=== PATIENT | female | born 1985 | race Two or more races ===

== ENCOUNTER 2022-04-28 11:39 | Emergency (ER) | payer MEDICAID ==
[~2022-04-28] VITALS: Ht 162.6 cm; Wt 73.5 kg
--- NOTE | 2022-04-28 11:46 | NUR ---
PT BIBRA FROM [facility] C/O R WRIST/HAND PAIN AND SWELLING S/P ACCIDENTALLY HITTING A POLE 1 WEEK AGO. PT ENDORSES THAT SHE IS 6 WEEKS BUT DENIES ANY RELATED CONCERNS. STABLE VITALS. NAD NOTED AWAITING MD GUPTA.
[2022-04-28] MEDS ORDERED: ACETAMINOPHEN 325 MG TABLET PO ONE (12:30)
--- NOTE | 2022-04-28 12:30 | NUR ---
DR SANDOVAL AT BEDSIDE FOR EVAL.
[2022-04-28] MEDS ORDERED: ACETAMINOPHEN 325 MG TABLET ONE (12:42)
[2022-04-28] MEDS ORDERED: CLIN150C16 PO (13:33)
[2022-04-28] MEDS ORDERED: PNV1TABL50 PO (13:33)
[2022-04-28] MEDS ORDERED: ACET325C7 PO (13:33)
--- NOTE | 2022-04-28 14:00 | NUR ---
SEEN BY SARI DAMIAN. WAS GIVEN HOMELESS RESOURCES AND BUS PASS.
--- NOTE | 2022-04-28 14:06 | NUR ---
Patient discharged to home in stable condition. Written and verbal after care instructions given. Patient verbalizes understanding of instruction.
[2022-04-28 14:08] VITALS: BP 122/86
--- NOTE | 2022-04-28 14:11 | NUR ---
SS Consult : SS CONSULT requested for homelessness & . The pt. is a 36 -year-old female patient who came in to the ED with complaints "right wrist pain". Upon SS consult, the pt. is Alert & Oriented x 4 and makes good eye contact. The pt. appears unkempt with depressed mood & flat affect. Pt. denies SI/HI and denies hallucinations. SW explored pt.'s living situation. Patient states she is currently experiencing homelessness and sleeps "anywhere". SW explored pt.'s mental health Hx. and pt. states he has been diagnosed with bipolard disorder depression, anxiety and has been off medication since being pragnant 6 weeks now. SW explored pt.'s drug & ETOH use. Pt. denies any drug or alcohol use. Pt. states he is ambulatory and independent with all his ADL's. SW explored pt.'s support system. Pt. states he has no support system here as she is from [place]. Plan: Pt. was agreeable to sheltr placement. RICKIE provided a TAP card to pt. and bus directions to [facility], [address] [place] [address] as an option. SW provided pt. with preganancy resources, homeless resources to shelters, food [place], showers etc. and pt. accepted resources. Pt. signed homeless waiver and it was placed in the pt.'s chart. MATERNITY HOUSING: [facility] (teens) 18 years + [facility]ela [employer] [phone] [facility] [phone] [phone] PARENTING CLASSES: [facility] [address] [phone] Friends [facility] [phone] [phone] [facility] [facility] Child/Family Center in [place] [facility] /INFANT CARE: [facility] Support [place] office [phone] [phone] Care.com - all types of support [phone] PREPARED CHILDBIRTH: [phone] [place] SUBSTANCE ABUSE SUPPORT: [phone] [facility] [phone] [facility] [place] PROGRAM: Provides supplementary food cards for women and children under 5 years of age. SFV: [place]: Jha: [place]: OTHER RESOURCES: [facility] - provides food, clothing, furniture, medical care, etc., to families and children living in the [place] areas. [facility] Family [facility] Family Rescue Cent. [employer]- car seat discounts Multiples of May Support www.nomotc.org Food Pantries www.atHomestars.org www.Bozukocity.org Cord Banking: http://americanpregnancy.org/xstby-gfu-azzhe/pvhl-msftr-zohfybp/ Year-round shelters: [facility] [place] [address] [place], [place] [id number] ; [facility] [place] [address] [place] [address]; [facility] Msyexnn4919 [facility]. [facility] [address] Hygiene: [facility]: [address] [place] ; [facility] [address] [facility] ; [facility] 7193 WoosungJomar Painter . Food Resources: [place] [facility] at [facility]- [address]. [place]; Meet Each Need with Dignity ([facility]) [address] [place] [address]. [place]; [facility] Food Pant[facility] 9480 [facility] [Www.[facility]ional.Com]; [facility] 2979 [facility]. Mental Health resources provided: [facility] [address] [place] [address] ; [facility] [address] [facility] [address], [place], [place] [id number] ; [facility] [address] [facility] [place], [place] [id number] ; [facility] [address] [place], [place] [address] Healthcare Clinics: [facility] [address] [facility], [address] [place]. [place] ; [facility] [address] [facility] [address] [place] [address]; [facility] [address] [place] [address] [phone] Counseling--Outpatient [facility] [address] [facility], [address] [place], [place] [address] (Specializes in in-depth psychotherapy for emotional distress: anxiety, depression, interpersonal conflicts, life transitions, childhood abuse) [facility] [address] [place], [place] [phone] (Assist with solving problem marital difficulties, separation & divorce, aging parents, & grief, chronic & terminal illness) [facility] [address] [place] [address] (Deal with loss & grief, anxiety, marital difficulties) Homebound/Mental Health Services [address] [facility], [address] [place] [address] (Provide in-home mental services to people who are incapable of leaving their homes) Organization for Needs of the Elderly Senior Service/Resource Center [address] [place] [address] [facility] [address] [facility] [place] [address] PSYCHIATRIC OUTPATIENT SERVICES [facility] Partial Hospitalization and Intensive Outpatient Program (Managed Care and [place] Only)[address] [facility] [phone] [facility] Partial Hospitalization and Outpatient [address] [place], [place] [phone] [facility] Mental Health Sanderson Rro[address] [facility]. [address] [place], [place] [phone] [facility] Partial Hospitalization and Outpatient Ipyqgic38598 [facility] Jomar Rudolph, [phone] Substance Abuse resources provided included: [facility] Substance Abuse Self-Helpline ([facility]) ; CRI -HELP [address] [facility]. [place] [address] ; [facility] [address] [facility] [address] ; [facility] Rehabilitation Program [address]vd[facility] [phone] ; [facility] [address] [address] ; [facility] [address] [facility] [phone] ; Veron[facility] [address] [facility] [address] ; [facility] Substance Abuse Helpline([facility])-[facility] ; [facility] ; [facility]; [facility]; Cri-Help [place]; I-AD[facility] Inter [facility] Drug Abuse Recovery Jomar Rudolph; [facility] [place]; [facility] Samra; [facility], [facility]. [facility]ent[facility] [place]; Alcoholics Anonymous -SFV; Tj-Iczh-Lcdpulm ; Marijuana Anonymous -SFV; Narcotics Anonymous www.na.org;
== END 2022-04-28 14:09 | disposition home or self-care (01) ==
LOC: ER 11:42
DX: S60.211A Contusion of right wrist, initial encounter (principal); L03.113 Cellulitis of right upper limb; Z79.899 Other long term (current) drug therapy; W22.8XXA Striking against or struck by other objects, initial encounter; Y93.89 Activity, other specified; Y92.89 Other specified places as the place of occurrence of the external cause; Y99.8 Other external cause status
CPT/HCPCS: 73090-TC; 73130-TC

== ENCOUNTER 2025-03-08 13:52 | Emergency (ER) | payer MEDICAID, OTHER ==
[~2025-03-08] VITALS: Ht 162.6 cm; Wt 63.5 kg
[~2025-03-08 13:52] MED LIST: ACET325C7 PO; CLIN150C16 PO; PNV1TABL50 PO
[2025-03-08 13:56] VITALS: TEMP 98.3
[2025-03-08 14:17] LABS: PLATELET COUNT (AUTO) 261 K/uL (150-450); RED BLOOD CELL COUNT(AUTO) 3.77 MIL/uL (4.0-5.2); RED CELL DISTRIBUTION WIDTH 15.4 % (11.5-15.0); WHITE BLOOD COUNT (AUTO) 8.3 K/uL (4.3-11.0)
[2025-03-08 14:24] LABS: CALCIUM, SERUM 8.5 mg/dL (8.5-10.1); CREATININE 1.0 mg/dL (0.6-1.3); SODIUM SERUM 137 mmol/L (136-145); UREA NITROGEN, BLOOD 19 mg/dL (7-18)
[2025-03-08 14:40] LABS: ASPARTATE AMINOTRANSFERASE 76 U/L (15-37); NT-PRO BNP 8612 pg/mL (0-125); TOTAL PROTEIN, SERUM 6.6 g/dL (6.4-8.2)
[2025-03-08] MEDS ORDERED: LORAZEPAM 1 MG TABLET ONE (14:59)
[2025-03-08] MEDS ORDERED: ASPIRIN EC 325 MG TABLET.DR PO ONE (14:59)
[2025-03-08 15:00] VITALS: BP 129/98; O2SAT 98
[2025-03-08] MEDS: LORAZEPAM 1 MG TABLET PO ONE (15:11)
[2025-03-08] MEDS: IV NS 0.9% 1,000 ML BAG IV ONE (15:11)
[2025-03-08] MEDS: ASPIRIN EC 325 MG TABLET.DR PO ONE (15:11)
[2025-03-08] MEDS ORDERED: IV NS 0.9% 250 ML IV ONE (16:28)
[2025-03-08] MEDS ORDERED: IOHEXOL-350 100 ML VIAL IV ONE (16:28)
[2025-03-08 16:37] LABS: APPEARANCE,URINE CLEAR (CLEAR); BLOOD, URINE Trace-intact Ery/uL (NEGATIVE); LEUKOCYTE ESTERASE ,URINE Small (NEGATIVE); UGLUCOSE Negative (NEGATIVE)
[2025-03-08 16:38] LABS: ADD URINE CULTURE YES; CALCIUM OXALATE CRYSTALS,UR Rare /HPF (None Seen); NITRITE, URINE NEGATIVE (NEGATIVE); SQUAMOUS EPITHELIAL CELL,UR Few /HPF (None Seen)
== END 2025-03-08 17:37 | disposition left against medical advice (07) ==
LOC: ER 13:55
DX: I21.4 Non-ST elevation (NSTEMI) myocardial infarction (principal); J81.1 Chronic pulmonary edema; R07.9 Chest pain, unspecified; Z79.899 Other long term (current) drug therapy
CPT/HCPCS: 99285; 96360; 71275; 71045; 93005; 85025; 80048; 87086; 83690; 80076; 85378; 84703; 81001; 36415; 84484 ×2; 83880; J7030; J7050; Q9967

== ENCOUNTER 2025-07-24 06:28 | Emergency (ER) | payer OTHER ==
[~2025-07-24] VITALS: Ht 152.4 cm; Wt 83.9 kg
[2025-07-24 06:31] VITALS: TEMP 98.6
[2025-07-24 07:29] LABS: PLATELET COUNT (AUTO) 241 K/uL (150-450); RED BLOOD CELL COUNT(AUTO) 4.34 MIL/uL (4.0-5.2); RED CELL DISTRIBUTION WIDTH 23.6 % (11.5-15.0); WHITE BLOOD COUNT (AUTO) 9.1 K/uL (4.3-11.0)
[2025-07-24 07:35] LABS: CALCIUM, SERUM 9.0 mg/dL (8.5-10.1); CREATININE 0.8 mg/dL (0.6-1.3); SODIUM SERUM 138 mmol/L (136-145); UREA NITROGEN, BLOOD 26 mg/dL (7-18)
[2025-07-24 07:40] LABS: ALCOHOL, BLOOD < 3 mg/dL (0-10); ASPARTATE AMINOTRANSFERASE 32 U/L (15-37); TOTAL PROTEIN, SERUM 8.0 g/dL (6.4-8.2)
[2025-07-24 08:15] LABS: NT-PRO BNP 5259 pg/mL (0-125)
[2025-07-24] MEDS ORDERED: IV NS 0.9% 250 ML IV ONE (08:49)
[2025-07-24] MEDS ORDERED: IOHEXOL-350 100 ML VIAL IV ONE (08:49)
[2025-07-24] MEDS: ENOXAPARIN SODIUM 80 MG/0.8 ML DISP.SYRIN SQ ONE (09:30)
[2025-07-24] MEDS: ASPIRIN 81 MG TAB.CHEW PO ONE (10:00)
[2025-07-24] MEDS: FUROSEMIDE 40 MG/4 ML VIAL IV ONE (10:00)
[2025-07-24 14:11] VITALS: BP 119/80; O2SAT 97
== END 2025-07-24 14:50 | disposition short-term general hospital (02) ==
LOC: ER 06:29
DX: I26.99 Other pulmonary embolism without acute cor pulmonale (principal); I11.0 Hypertensive heart disease with heart failure; I21.4 Non-ST elevation (NSTEMI) myocardial infarction; F15.10 Other stimulant abuse, uncomplicated; I82.433 Acute embolism and thrombosis of popliteal vein, bilateral; I42.7 Cardiomyopathy due to drug and external agent; R10.20 Pelvic and perineal pain unspecified side; Z59.00 Homelessness unspecified; Z79.899 Other long term (current) drug therapy
CPT/HCPCS: 99291; 99292; 96372; 96374; 93005; 71045; 71275; 85025; 80048; 83690; 80076; 85378; 36415; 84484 ×2; 83880; 84702; 93970; 80143; 80320; J1938; J7050; J1650; Q9967; G0480